=== PATIENT | female | born 1985 | race African-American/Black ===

== ENCOUNTER 2018-01-06 04:14 | Inpatient (IN) | payer OTHER ==
[~2018-01-06] VITALS: Ht 162.6 cm; Wt 117.9 kg
[2018-01-06 04:53] LABS: ABSOLUTE BASOPHIL COUNT 0.1 /CUMM (0.0-0.2); ABSOLUTE EOSINOPHIL COUNT 0.1 /CUMM (0.0-0.7); ABSOLUTE GRANULOCYTE CT 7.2 /CUMM (1.4-6.5); ABSOLUTE LYMPH COUNT 2.2 /CUMM (1.2-3.4); ABSOLUTE MONOCYTE COUNT 0.8 /CUMM (0.10-0.60); BASOPHIL % 0.5 % (0.0-2.0); HEMATOCRIT 35.1 % (37-47); MEAN CORPUSCULAR HGB 28.8 PG (27.0-31.0); MEAN CORPUSCULAR HGB CONC 30.9 G/DL (33.0-37.0); MEAN CORPUSCULAR VOLUME 93.5 FL (81.0-99.0); MEAN PLATELET VOLUME 8.5 FL (7.4-10.4); RBC DISTRIBUTION WIDTH 13.8 % (11.5-14.5); WHITE BLOOD CELL COUNT 10.3 /CUMM (4.8-10.8)
[2018-01-06 04:55] VITALS: BP 125/57
[2018-01-06 05:27] LABS: RED BLOOD CELL CT 3.76 /CUMM (4.20-5.40)
[2018-01-06 05:28] LABS: GRANULOCYTE % 69.6 % (42.2-75.2); PLATELET COUNT 209 /CUMM (130-400)
--- NOTE | 2018-01-06 06:04 | History & Physical ---
General Information and HPI MD Statement: I have seen and personally examined ZACHERY JJ and documented this H&P. The patient is a 32 year old female at [] weeks and [] days gestation who presented with a chief complaint of contractions []. History of Present Illness: 32-year-old 5 para 3013 at 38-6/7 weeks gestation with gestational diabetes diet controlled. Patient did not have time to see the wet sander she's been checking her sugars on her own we've been performing NSTs in the office her hemoglobin A1c last time we target was 4.7. Patient presents today complaining of contractions she is fully dilated with a bulging membranes. 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: 3 Last Menstrual Period: 03/1617 Past [address] maintenance crew worker History: multiparous Surgical History Pertinent Surgical History: none Past Family/Social History Psychosocial History Smoking Status: Never Smoked Review of Systems Review of Systems: Negative review of systems Exam & Diagnostic Data Last 24 Hrs of Vital Signs/I&O Vital Signs Date Time Temp Pulse Resp B/P B/P Pulse O2 O2 Flow FiO2 Mean Ox Delivery Rate 01/06 0455 125/57 Intake & Output 01/06 0800 01/06 0000 01/05 1600 Intake Total Output Total Balance Patient 260 lb Weight Obstetric Exam Wgt Gained During : 12 Pelvimetry: Tested to 814 Dilation (cm): 10 Effacement (%): 100 Station: 0 Membranes: intact Fluid: unknown Fundal Height (cm): 39 Multiple Gestation? No Contractions: To 3 minutes Patient for Induction? No Labs Blood Type & Rh: O+ Antibody Screen: Negative Hct/Hgb & Platelets #1: Hct/Hgb & Platelets #2: Rubella: Immune VDRL #1: Nonreactive VDRL #2: Nonreactive HbsAg: Negative HIV #1: Negative HIV #2 Negative 1 Hr P 3 Hr PG: No 3 hour Group B Strep: Positive group B strep Initial Ultrasound: Normal consistent with gestational age Anatomy Ultrasound: Normal anatomy scan Genetic Testing: Normal genetic testing Last 24 Hrs of Labs/Martin: Laboratory Tests 01/06/18 0430: Glucose 97, CBC w Diff NO MAN DIFF REQ, RBC 3.76 L, MCV 93.5, MCH 28.8, MCHC 30.9 L, RDW 13.8, MPV 8.5, Gran % 69.6, Lymphocytes % 21.1, Monocytes % 7.8, Eosinophils % 1.0, Basophils % 0.5, Absolute Granulocytes 7.2 H, Absolute Lymphocytes 2.2, Absolute Monocytes 0.8 H, Absolute Eosinophils 0.1, Absolute Basophils 0.1 01/06/18 0425: Urinalysis MOD H, Urine Color STRAW, Urine Clarity TURBD H, Urine pH 6.5, Ur Specific [place] 1.020, Urine Protein NEG, Urine Ketones NEG, Urine Nitrite NEG, Urine Bilirubin NEG, Urine Urobilinogen 0.2, Ur Leukocyte Esterase MOD H, Ur Microscopic SEDIMENT EXAMINED, Urine RBC 1-3, Urine WBC 25-50 H, Ur Epithelial Cells MOD H, Urine Bacteria MOD H, Urine Hemoglobin MOD H, Urine Glucose NEG Assessment/Plan As Ranked By This Provider Problem List: 1. Core Measures Venous Thromboembolism VTE Risk Factors / No Mechanical VTE Prophylaxis d/t N/A MechProphylax Ordered No VTE Pharm Prophylaxis d/t NA PharmProphylax ordered Attending MD Review Statement Attending Statement Attending MD Statement: examined this patient
--- NOTE | 2018-01-06 06:05 | Labor & Delivery Summary ---
Delivery Summary Vaginal Delivery: Vaginal: vertex Episiotomy/Lacerations: Episiotomy/Lacerations: none Placenta: Placenta: spontanteous Additional Comments: without meconium three-vessel cord around body 1 blood-tinged fluid over intact perineum. Cord was doubly clamped and cut infant was handed to the mother for baby friendly. And skin skin. Placenta by continuous cord traction intact perineum without lacerations fundus firm S major blood loss 500 patient is O+
[2018-01-07 06:22] LABS: ABSOLUTE BASOPHIL COUNT 0 /CUMM (0.0-0.2); ABSOLUTE EOSINOPHIL COUNT 0.1 /CUMM (0.0-0.7); ABSOLUTE GRANULOCYTE CT 7.2 /CUMM (1.4-6.5); ABSOLUTE LYMPH COUNT 2.5 /CUMM (1.2-3.4); ABSOLUTE MONOCYTE COUNT 0.9 /CUMM (0.10-0.60); BASOPHIL % 0.4 % (0.0-2.0); HEMATOCRIT 33.2 % (37-47); MEAN CORPUSCULAR HGB 30.1 PG (27.0-31.0); MEAN CORPUSCULAR HGB CONC 32.1 G/DL (33.0-37.0); MEAN CORPUSCULAR VOLUME 93.6 FL (81.0-99.0); MEAN PLATELET VOLUME 8.8 FL (7.4-10.4); PLATELET COUNT 182 /CUMM (130-400); RBC DISTRIBUTION WIDTH 13.8 % (11.5-14.5); RED BLOOD CELL CT 3.54 /CUMM (4.20-5.40); WHITE BLOOD CELL COUNT 10.8 /CUMM (4.8-10.8)
[2018-01-07] MEDS ORDERED: IBUPROFEN800 M1 PO (10:08)
--- NOTE | 2018-01-07 10:12 | PN- Post Delivery/GYN ---
Subjective Subjective: NO COMPLAINTS WANTS TO GO ABD SOFT FUNDUS FIRM NT EXT -EDEMA -HOMANS Objective Last 24 Hrs of Vital Signs/I&O PER CHART Assessment/Plan Assessment/Plan ASSESS S/P PLAN DISCHARGE
== END 2018-01-07 11:05 | DRG 560 ==
LOC: GNO 04:14
PROVIDERS: Specialist
PROC: 10E0XZZ Delivery of Products of Conception, External Approach (ICD-10-PCS; principal; 2018-01-06)
DX: O24.420 Gestational diabetes mellitus in childbirth, diet controlled (principal); O69.89X0 Labor and delivery complicated by other cord complications, not applicable or unspecified; Z3A.38 38 weeks gestation of pregnancy; Z37.0 Single live birth
CPT/HCPCS: GNOS; 36415; 81001; J1050; J7120